=== PATIENT | male | born 1945 | race Caucasian/White ===

== ENCOUNTER 2017-11-09 22:21 | Emergency (ER) | payer MEDICARE ==
[~2017-11-09] VITALS: Ht 182.9 cm; Wt 99.0 kg
[~2017-11-09 22:21] MED LIST: KEFLEX500 M1 PO; UNABLE TO RECONCILE
[2017-11-09] MEDS ORDERED: OMEPRAZOLE10 MG PO (22:35)
[2017-11-09] MEDS ORDERED: LEVOTHYROXIN25 MC1 PO (22:35)
[2017-11-09] MEDS ORDERED: ALLOPURINOL100 MG PO (22:35)
[2017-11-09] MEDS ORDERED: SIMVASTATIN40 MG PO (22:36)
[2017-11-09 23:20] LABS: HEMATOCRIT 45.6 % (39.0-50.0); HEMOGLOBIN 15.6 g/dl (14.0-18.0); IMMATURE GRANULOCYTES 0.8 % (0.0-1.0); MEAN CELL VOLUME 88.9 fL CALC (80.0-100.0); MEAN CORPUSCULAR HGB 30.4 pG CALC (26.0-32.0); MEAN CORPUSCULAR HGB CONC 34.2 g/L CALC (32.0-36.0); NEUT# 3.94 thou/uL (1.82-7.42); RED BLOOD COUNT 5.13 mill/uL (4.70-6.10); RED CELL DISTRI WIDTH 12.6 % (11.5-15.5)
[2017-11-09 23:30] LABS: ALBUMIN 3.9 g/dL (3.2-5.0); BILIRUBIN, TOTAL 0.4 mg/dL (0.0-1.4); POTASSIUM 3.9 mmol/l (3.5-5.1); TOTAL PROTEIN 6.8 g/dL (6.3-8.2)
[2017-11-09 23:32] LABS: CREATININE 1.4 mg/dL (0.7-1.3)
[2017-11-09] MEDS ORDERED: NAPROSYN500 MG PO (23:39)
[2017-11-09] MEDS ORDERED: FLEXERIL PO (23:39)
[2017-11-10 00:31] VITALS: BP 136/70
== END 2017-11-10 00:30 | disposition home or self-care (01) | DRG 93 ==
LOC: ED 22:21
PROVIDERS: Emergency Medicine
DX: R25.2 Cramp and spasm (principal)

== ENCOUNTER 2018-07-18 13:15 | Emergency (ER) | payer OTHER, MEDICARE ==
[~2018-07-18] VITALS: Ht 182.9 cm; Wt 100.0 kg
[~2018-07-18 13:15] MED LIST changes: +ALLOPURINOL100 MG PO; +FLEXERIL PO; +LEVOTHYROXIN25 MC1 PO; +NAPROSYN500 MG PO; +OMEPRAZOLE10 MG PO; +SIMVASTATIN40 MG PO
[2018-07-18] MEDS ORDERED: TORADOL PO (14:42)
[2018-07-18] MEDS ORDERED: FLEXERIL PO (14:42)
[2018-07-18 15:08] VITALS: BP 182/89
== END 2018-07-18 15:08 | disposition home or self-care (01) | DRG 552 ==
LOC: ED 13:15
DX: S16.1XXA Strain of muscle, fascia and tendon at neck level, initial encounter (principal); V59.40XA Driver of pick-up truck or van injured in collision with unspecified motor vehicles in traffic accident, initial encounter

== ENCOUNTER 2019-12-29 12:35 | Emergency (ER) | payer OTHER, MEDICARE ==
[~2019-12-29] VITALS: Ht 182.9 cm; Wt 100.0 kg
[~2019-12-29 12:35] MED LIST changes: +TORADOL PO
[2019-12-29 12:57] LABS: HEMATOCRIT 46.5 % (39.0-50.0); HEMOGLOBIN 15.5 g/dl (14.0-18.0); IMMATURE GRANULOCYTES 0.6 % (0.0-5.0); MEAN CELL VOLUME 89.6 fL CALC (80.0-100.0); MEAN CORPUSCULAR HGB 29.9 pG CALC (26.0-32.0); MEAN CORPUSCULAR HGB CONC 33.3 g/dL CAL (32.0-36.0); NEUT# 6.01 thou/uL (1.82-7.42); RED BLOOD COUNT 5.19 mill/uL (4.70-6.10); RED CELL DISTRI WIDTH 12.9 % (11.5-15.5)
[2019-12-29 13:09] LABS: ALBUMIN 4.3 g/dL (3.2-5.0); ALKALINE PHOSPHATASE 72 u/l (38-126); BUN 19 mg/dL (8-23); BUN/CREATININE RATIO 16 (12-20 (CALC)); CARBON DIOXIDE 24 mmol/l (22-30); CHLORIDE 105 mmol/l (95-108); CREATININE 1.2 mg/dL (0.7-1.3); GFR 59 ML/MIN (>=60 (CALC)); GFR FOR AFR.AMER. > 60 ML/MIN (>=60 (CALC)); SGOT/AST 34 u/l (19-48); SODIUM 136 mmol/l (137-146); TOTAL PROTEIN 7.3 g/dL (6.3-8.2)
[2019-12-29 13:13] LABS: ANION GAP 12 (6-22 (CALC)); BILIRUBIN, TOTAL 0.6 mg/dL (0.0-1.4); POTASSIUM 4.7 mmol/l (3.5-5.1)
[2019-12-29 14:26] VITALS: BP 147/80
== END 2019-12-29 14:26 | disposition home or self-care (01) | DRG 310 ==
LOC: ED 12:35
PROVIDERS: Family Medicine
DX: R00.2 Palpitations (principal)

== ENCOUNTER 2021-01-16 17:56 | Emergency (ER) | payer OTHER, MEDICARE ==
[~2021-01-16] VITALS: Ht 182.9 cm; Wt 95.0 kg
[2021-01-16] MEDS ORDERED: CORTISPORIN OTI10 M2 AS (18:23)
[2021-01-16 18:41] VITALS: BP 128/68
== END 2021-01-16 18:41 | disposition home or self-care (01) | DRG 156 ==
LOC: ED 17:56
DX: H60.92 Unspecified otitis externa, left ear (principal); I10 Essential (primary) hypertension; E03.9 Hypothyroidism, unspecified; M10.9 Gout, unspecified; E78.00 Pure hypercholesterolemia, unspecified

== ENCOUNTER 2021-11-30 09:25 | Emergency (ER) | payer OTHER, MEDICARE ==
[~2021-11-30] VITALS: Ht 182.9 cm; Wt 98.0 kg
[~2021-11-30 09:25] MED LIST changes: +CORTISPORIN OTI10 M2 AS
[2021-11-30 10:24] VITALS: BP 151/106
[2021-11-30] MEDS ORDERED: ALLOPURINOL300 MG PO (10:28)
[2021-11-30] MEDS ORDERED: OMEPRAZOLE10 MG PO (10:29)
[2021-11-30] MEDS ORDERED: BP MED (10:29)
[2021-11-30] MEDS ORDERED: LISINOPRIL2.5 MG PO (10:29)
[2021-11-30] MEDS ORDERED: LISINOP/HCTZ1 TA1 PO (10:52)
[2021-11-30] MEDS ORDERED: SILDENAFIL CIT100 MG (10:53)
[2021-11-30] MEDS ORDERED: LEVOTHYROXIN100 MC1 PO (10:54)
[2021-11-30] MEDS ORDERED: SIMVASTATIN10 MG PO (10:56)
[2021-11-30] MEDS ORDERED: EQL VITAMIN B500 MCG (10:57)
[2021-11-30] MEDS ORDERED: ALLOPURINOL100 MG PO (10:59)
[2021-11-30] MEDS ORDERED: HM VITAMIN D325 MCG (10:59)
== END 2021-11-30 11:40 | disposition home or self-care (01) | DRG 179 ==
LOC: ED 09:25
DX: U07.1 COVID-19 (principal); R52 Pain, unspecified; R05.9 Cough, unspecified; R09.89 Other specified symptoms and signs involving the circulatory and respiratory systems; I10 Essential (primary) hypertension; E03.9 Hypothyroidism, unspecified; M10.9 Gout, unspecified; E78.00 Pure hypercholesterolemia, unspecified

== ENCOUNTER 2022-07-16 06:23 | Emergency (ER) | payer OTHER, MEDICARE ==
[~2022-07-16] VITALS: Ht 182.9 cm; Wt 93.6 kg
[2022-07-16] VITALS (16 sets, daily range): BP systolic 147–176; BP diastolic 76–104
[~2022-07-16 06:23] MED LIST changes: +ALLOPURINOL300 MG PO; +BP MED; +EQL VITAMIN B500 MCG; +HM VITAMIN D325 MCG; +LEVOTHYROXIN100 MC1 PO; +LISINOP/HCTZ1 TA1 PO; +LISINOPRIL2.5 MG PO; +SILDENAFIL CIT100 MG; +SIMVASTATIN10 MG PO
[2022-07-16 07:31] LABS: BASO% 0.6 % (0-3); EOS% 5.6 % (0-8); IMMATURE GRANULOCYTES 0.4 % (0.0-5.0); LYMPH% 14.6 % (15-41); MEAN CELL VOLUME 92.4 fL CALC (80.0-100.0); MEAN CORPUSCULAR HGB CONC 33.5 g/dL CAL (32.0-36.0); MONO% 11.6 % (2-13); NEUT# 3.23 thou/uL (1.82-7.42); NEUT% 67.2 % (42-76); RED BLOOD COUNT 4.2 mill/uL (4.70-6.10); RED CELL DISTRI WIDTH 13.2 % (11.5-15.5)
[2022-07-16 07:33] LABS: HEMATOCRIT 38.8 % (39.0-50.0)
[2022-07-16 08:09] LABS: ALBUMIN 3.9 g/dL (3.2-5.0); ALKALINE PHOSPHATASE 69 u/l (38-126); ANION GAP 10 (6-22 (CALC)); BUN 24 mg/dL (8-23); BUN/CREATININE RATIO 21 (12-20 (CALC)); CARBON DIOXIDE 26 mmol/l (22-30); CHLORIDE 105 mmol/l (95-108); CREATININE 1.1 mg/dL (0.7-1.3); GFR FOR AFR.AMER. > 60 ML/MIN (>=60 (CALC)); GFR OTHER RACES > 60 ML/MIN (>=60 (CALC)); LIPASE 132 u/l (23-300); POTASSIUM 4.3 mmol/l (3.5-5.1); SGOT/AST 26 u/l (19-48); SODIUM 137 mmol/l (137-146); TOTAL PROTEIN 6.7 g/dL (6.3-8.2)
[2022-07-16 11:44] LABS: URINE BILIRUBIN - DIPSTICK NEGATIVE (NEGATIVE); URINE BLOOD DIPSTICK NEGATIVE (NEGATIVE); URINE COLOR YELLOW; URINE GLUCOSE - DIPSTICK NEGATIVE (NEGATIVE); URINE KETONE NEGATIVE (NEGATIVE); URINE LEUK ESTERASE NEGATIVE (NEGATIVE); URINE NITRITE - DIPSTICK NEGATIVE (Negative); URINE PROTEIN - DIPSTICK NEGATIVE (NEG-TRACE); URINE UROBILINOGEN - DIPSTICK 0.2 E.U./dL (0.2)
[2022-07-16] MEDS ORDERED: CELEBREX100 M1 PO (12:59)
[2022-07-16] MEDS ORDERED: PROTONIX40 M4 PO (13:46)
[2022-07-17] MEDS ORDERED: PREVACID30 M3 PO (22:02)
[2022-07-17] MEDS ORDERED: MIRALAX17 GM PO (22:02)
== END 2022-07-16 14:00 | disposition left against medical advice (07) | DRG 392 ==
LOC: ED 06:23
PROVIDERS: Emergency Medicine
DX: R10.33 Periumbilical pain (principal)
CPT/HCPCS: Q9967; S0164

== ENCOUNTER 2022-07-17 20:44 | Emergency (ER) | payer OTHER, MEDICARE ==
[~2022-07-17] VITALS: Ht 182.9 cm; Wt 93.0 kg
[~2022-07-17 20:44] MED LIST changes: +CELEBREX100 M1 PO; +PROTONIX40 M4 PO
[2022-07-17 21:24] VITALS: BP 162/82
[2022-07-17 21:30] VITALS: BP 143/75
[2022-07-17 21:31] LABS: BASO% 0.6 % (0-3); EOS% 3.9 % (0-8); HEMATOCRIT 40.8 % (39.0-50.0); HEMOGLOBIN 13.9 g/dl (14.0-18.0); IMMATURE GRANULOCYTES 0.4 % (0.0-5.0); LYMPH% 9.8 % (15-41); MEAN CELL VOLUME 91.5 fL CALC (80.0-100.0); MEAN CORPUSCULAR HGB 31.2 pG CALC (26.0-32.0); MEAN CORPUSCULAR HGB CONC 34.1 g/dL CAL (32.0-36.0); NEUT# 6.04 thou/uL (1.82-7.42); NEUT% 76.3 % (42-76); RED BLOOD COUNT 4.46 mill/uL (4.70-6.10); RED CELL DISTRI WIDTH 13.1 % (11.5-15.5)
[2022-07-17 21:43] LABS: ALBUMIN 4.3 g/dL (3.2-5.0); ALKALINE PHOSPHATASE 84 u/l (38-126); AMYLASE 76 u/l (30-110); ANION GAP 11 (6-22 (CALC)); BUN 22 mg/dL (8-23); BUN/CREATININE RATIO 19 (12-20 (CALC)); CARBON DIOXIDE 25 mmol/l (22-30); CHLORIDE 107 mmol/l (95-108); CREATININE 1.2 mg/dL (0.7-1.3); GFR FOR AFR.AMER. > 60 ML/MIN (>=60 (CALC)); GFR OTHER RACES 59 ML/MIN (>=60 (CALC)); LIPASE 128 u/l (23-300); POTASSIUM 4.1 mmol/l (3.5-5.1); SGOT/AST 29 u/l (19-48); SODIUM 140 mmol/l (137-146); TOTAL PROTEIN 7.3 g/dL (6.3-8.2)
[2022-07-17 21:46] VITALS: BP 152/81
[2022-07-17 21:50] LABS: BILIRUBIN, TOTAL 0.2 mg/dL (0.0-1.4)
[2022-07-17 22:01] VITALS: BP 149/78
[2022-07-17] MEDS ORDERED: MIRALAX17 GM PO (22:02)
[2022-07-17] MEDS ORDERED: PREVACID30 M3 PO (22:02)
[2022-07-17 22:04] VITALS: BP 149/76
== END 2022-07-17 22:16 | disposition home or self-care (01) | DRG 392 ==
LOC: ED 20:44
PROVIDERS: Emergency Medicine
DX: R10.9 Unspecified abdominal pain (principal); K59.00 Constipation, unspecified

== ENCOUNTER 2023-02-13 09:40 | Emergency (ER) | payer OTHER, MEDICARE ==
[~2023-02-13] VITALS: Ht 182.9 cm; Wt 102.4 kg
[~2023-02-13 09:40] MED LIST changes: +MIRALAX17 GM PO; +PREVACID30 M3 PO
[2023-02-13 09:47] VITALS: BP 152/88
[2023-02-13 10:00] VITALS: BP 131/88
[2023-02-13 10:10] LABS: BASO% 0.4 % (0-3); EOS% 3.6 % (0-8); HEMATOCRIT 45.3 % (39.0-50.0); IMMATURE GRANULOCYTES 0.4 % (0.0-5.0); LYMPH% 11.3 % (15-41); MEAN CORPUSCULAR HGB 30.8 pG CALC (26.0-32.0); MEAN CORPUSCULAR HGB CONC 33.1 g/dL CAL (32.0-36.0); MONO% 11.2 % (2-13); NEUT# 5.68 thou/uL (1.82-7.42); NEUT% 73.1 % (42-76); RED BLOOD COUNT 4.87 mill/uL (4.70-6.10); RED CELL DISTRI WIDTH 13.3 % (11.5-15.5)
[2023-02-13 10:29] LABS: ALBUMIN 4.1 g/dL (3.2-5.0); ALKALINE PHOSPHATASE 94 u/l (38-126); ANION GAP 14 (6-22 (CALC)); BUN 23 mg/dL (8-23); BUN/CREATININE RATIO 19 (12-20 (CALC)); CARBON DIOXIDE 22 mmol/l (22-30); CHLORIDE 104 mmol/l (95-108); CREATININE 1.2 mg/dL (0.7-1.3); GFR FOR AFR.AMER. > 60 ML/MIN (>=60 (CALC)); GFR OTHER RACES 59 ML/MIN (>=60 (CALC)); POTASSIUM 4.3 mmol/l (3.5-5.1); SGOT/AST 31 u/l (19-48); SODIUM 136 mmol/l (137-146); TOTAL PROTEIN 7.2 g/dL (6.3-8.2)
[2023-02-13 10:30] LABS: BILIRUBIN, TOTAL 0.4 mg/dL (0.2-1.3)
[2023-02-13 10:31] VITALS: BP 128/65
[2023-02-13] MEDS ORDERED: PAXLOVID 10 X 11 TAB PO (10:59)
[2023-02-13] MEDS ORDERED: MEDROL DOSEPAK4 MG PO (10:59)
[2023-02-13 11:01] VITALS: BP 131/80
== END 2023-02-13 11:11 | disposition home or self-care (01) | DRG 179 ==
LOC: ED 09:40
PROVIDERS: Family Medicine
DX: U07.1 COVID-19 (principal); R09.81 Nasal congestion; I10 Essential (primary) hypertension; E03.9 Hypothyroidism, unspecified; E78.00 Pure hypercholesterolemia, unspecified

== ENCOUNTER 2023-03-01 17:36 | Observation (INO) | payer OTHER, MEDICARE ==
[2023-03-01] VITALS (8 sets, daily range): BP systolic 112–145; BP diastolic 63–81
[~2023-03-01] VITALS: Ht 182.9 cm; Wt 98.4 kg
[~2023-03-01 17:36] MED LIST changes: +MEDROL DOSEPAK4 MG PO; +PAXLOVID 10 X 11 TAB PO
--- NOTE | 2023-03-01 17:53 | NUR ---
AMB TO ROOM 13 WITH STEADY GAIT.
--- NOTE | 2023-03-01 18:00 | NUR ---
RECTAL EXAM DONE, HEM POSITIVE, PT TOLERATED WELL.
[2023-03-01 18:25] LABS: BASO% 0.4 % (0-3); EOS% 2.6 % (0-8); HEMATOCRIT 42.5 % (39.0-50.0); HEMOGLOBIN 14.2 g/dl (14.0-18.0); IMMATURE GRANULOCYTES 0.5 % (0.0-5.0); LYMPH% 8.9 % (15-41); MEAN CELL VOLUME 91.6 fL CALC (80.0-100.0); MEAN CORPUSCULAR HGB 30.6 pG CALC (26.0-32.0); MEAN CORPUSCULAR HGB CONC 33.4 g/dL CAL (32.0-36.0); MONO% 11.2 % (2-13); NEUT# 6.26 thou/uL (1.82-7.42); NEUT% 76.4 % (42-76); RED BLOOD COUNT 4.64 mill/uL (4.70-6.10)
[2023-03-01 19:08] LABS: INTERNATIONAL NORMALIZED RATIO 1.1 RATIO (0.7-1.3); PROTHROMBIN TIME 10.3 SECONDS (9.0-12.5)
[2023-03-01 19:18] LABS: BILIRUBIN, TOTAL 0.5 mg/dL (0.2-1.3); CREATININE 1.9 mg/dL (0.7-1.3); POTASSIUM 5.5 mmol/l (3.5-5.1); TOTAL PROTEIN 6.9 g/dL (6.3-8.2)
--- NOTE | 2023-03-01 20:28 | NUR ---
PT IS STILL WAITING ON RADIOLOGY REPORTS. PT RESTING AND ON HIS PHONE AT THIS TIME. CALL HERNANDEZ WITHIN REACH
--- NOTE | 2023-03-01 21:22 | NUR ---
PT WILL BE ADMITTED FOR OBSERVATION. PT WILL BE STAYING IN THE ER DUE TO NOT HAVING ROOMS AVAILABLE UP STAIRS.
[2023-03-02] VITALS (29 sets, daily range): BP systolic 107–143; BP diastolic 53–83
[2023-03-02 00:48] LABS: HEMATOCRIT 41.6 % (39.0-50.0); HEMOGLOBIN 13.9 g/dl (14.0-18.0)
--- NOTE | 2023-03-02 01:10 | NUR ---
PT SLEEPING AT THIS TIME. CALL HERNANDEZ WITHIN REACH.
--- NOTE | 2023-03-02 01:19 | NUR ---
PT RESTING IN HOSPITAL BED PLACED IN ROOM IN ER FOR COMFORT, ADMISSION ASSESSMENT COMPLETED AND PATIENT MEDICATED ORDERED. PT STATES HE STARTED HAVING RECTAL BLEED ABOUT A WEEK AGAO AND IT CONSIDERABLY WORSE TODY, PT ALSO COMPLAINS OF RECTAL PAIN 7/10 ON PAIN SCALE BUT DENIES NEED FOR PAIN MEDS AT THIS TIME, SKIN IS WARM DRY AND INTACT WITH NO BREAKDOWN NOTED. PT STATES THAT HE LIVES ALONE IS ABLE TO DRIVE AND CARE FOR HIMSELF WELL HIS HOME. STATES HE HAS A GIRLFRIEND FOSTER STAYS OVER ONCE AND A WHILE. DENIES HAVING ANY OTHER COMPLAINTS.ORIENTED TO ROOM AND UNIT, SAFETY MEASURES INTRODUCED AND REINFORED AND PT VERBLAIZES UNDERSTANDING, WILL CONTINUE TO MONITOR.
--- NOTE | 2023-03-02 03:10 | NUR ---
PT STILL SLEEPING CALL LIGHT WITHIN REACH
--- NOTE | 2023-03-02 03:14 | NUR ---
pt resting with eyes closed, no s/s of distress or discomfort, call hutson within reach, no s/s of rectal bleedning noted, most recent hemoglobin only minimally lower than previous. Next HGB due at 0600am, will continue to monitor.
--- NOTE | 2023-03-02 05:09 | NUR ---
PT AMBULATED TO THE BATHROOM. PT BACK IN BED AND HOOKED UP TO MONITOR. CALL LIGHT WITHIN REACH
[2023-03-02 06:21] LABS: HEMATOCRIT 39.8 % (39.0-50.0); HEMOGLOBIN 13.2 g/dl (14.0-18.0)
--- NOTE | 2023-03-02 06:50 | NUR ---
MO GAVE BEDSIDE REPORT TO LORIN MED SURG NURSE
--- NOTE | 2023-03-02 07:00 | NUR ---
REPORT RECEIVED FROM CONNIE,RN
--- NOTE | 2023-03-02 08:40 | NUR ---
PT RESTING IN SEMI FOWLERS POSITION,A&O X3;VS OBTAINED AND ASSESSMENT COMPLETED;PT DENIES ANY CURRENT PAIN OR DISCOMFORTS,PAIN SCALE AND REPORTING EDUCATED;RESPIRATIONS EVEN AND UNLABORED ON RA,CLEAR LUNG SOUNDS;ABDOMEN SOFT ON PALPATION AND ACTIVE IN ALL 4 QUADRANTS;STRONG PEDAL PULSES;SKIN INTACT;#20G TO LAC INFUSING NS @100ML/HR,SITE APPEARS HEALTHY;MEAL TRAY PROVIDED;ALLERGY BAND APPLIED TO PT LEFT ARM;PT DENIES ANY ADDITIONAL NEEDS AND IS ENCOURAGED TO CALL FOR ASSISTANCE IF NEEDED;FALL PRECAUTIONS IN PLACE WITH CALL LIGHT IN REACH;FREQUENT ROUNDS MADE.
--- NOTE | 2023-03-02 10:24 | NUR ---
REPORT CALLED TO MIGUEL PEREZ
--- NOTE | 2023-03-02 10:50 | NUR ---
PT TRANSPORTED TO MED SURG ROOM 279 IN STABLE CONDITION VIA HOSPITAL BED ACCOMPANIED BY WRITTER. PT TOLERATED TRANSPORT WELL. CARE RELINQUISHED TO MIGUEL PEREZ
--- NOTE | 2023-03-02 10:56 | NUR ---
PT REPORT PROVIDED FROM LORIN RIVERA. PT ARRIVED TO [facility] VIA BED WITH NURSE. PT RESTING IN LOWFOWLERS POSITION. A/OX3 INDEPENDENT. IV SITE NOTED. INFUSING WITH NS.NO TELE. PT NOW ON 2L PER RT . PTDENIES ADDITIONAL NEEDS AT THE TIME ATTEMPTING TO FIX CALL LIGHT TO TV . CALL LIGHT WORKS. ALLSAFETY PRECAUTIONS IN PLACE.
[2023-03-02 11:05] LABS: HEMATOCRIT 41.3 % (39.0-50.0); HEMOGLOBIN 13.7 g/dl (14.0-18.0); MEAN CORPUSCULAR HGB 30.5 pG CALC (26.0-32.0); MEAN CORPUSCULAR HGB CONC 33.2 g/dL CAL (32.0-36.0); RED BLOOD COUNT 4.49 mill/uL (4.70-6.10)
--- NOTE | 2023-03-02 11:20 | NUR ---
LORIN GAVE BEDSIDE REPORT TO ALLY, PATIENT TRANSFERRED TO R 279 ON MED SURG. BELONGINGS WITH PATIENT
[2023-03-02 11:22] LABS: CREATININE 1.5 mg/dL (0.7-1.3); POTASSIUM 4.9 mmol/l (3.5-5.1)
[2023-03-02 12:07] LABS: HEMATOCRIT 42.1 % (39.0-50.0); HEMOGLOBIN 13.9 g/dl (14.0-18.0)
--- NOTE | 2023-03-02 12:38 | NUR ---
PT DENIES ADDITIONAL NEEDS AT THE TIME OTHER THAN TV ADGUSTMENT.
--- NOTE | 2023-03-02 16:06 | NUR ---
PT RESTING IN LOW FOWLERS POSITION DENIES ADDITIONAL NEEDS AT THE TIME. ALL SAFETY PRECAUTIONS IN PLACE.
[2023-03-02 18:13] LABS: HEMATOCRIT 43.2 % (39.0-50.0); HEMOGLOBIN 14.3 g/dl (14.0-18.0)
[2023-03-03 04:40] VITALS: BP 141/67
[2023-03-03 05:59] LABS: HEMATOCRIT 42.1 % (39.0-50.0); MEAN CELL VOLUME 92.1 fL CALC (80.0-100.0); MEAN CORPUSCULAR HGB 30.6 pG CALC (26.0-32.0); MEAN CORPUSCULAR HGB CONC 33.3 g/dL CAL (32.0-36.0); RED BLOOD COUNT 4.57 mill/uL (4.70-6.10); RED CELL DISTRI WIDTH 12.9 % (11.5-15.5)
[2023-03-03 06:10] LABS: ALBUMIN 3.7 g/dL (3.2-5.0); BILIRUBIN, TOTAL 0.7 mg/dL (0.2-1.3); CREATININE 1.4 mg/dL (0.7-1.3); POTASSIUM 4.5 mmol/l (3.5-5.1); TOTAL PROTEIN 6.6 g/dL (6.3-8.2)
[2023-03-03 06:43] VITALS: BP 119/66
--- NOTE | 2023-03-03 08:00 | NUR ---
PT RESTING IN HIGH FOWLERS POSITION. A/OX3 ASSESSMENT COMPLETED. PT HEART RHYHTM NORM. RESPIRATIONS 2LNC PRN. PT SPOKE WITH MD ESTRADA THIS MORNING FOR POSSIBLE OUT PT TREATMENT. PT STATED WHEN WILL BE DC. EDUCATED PT MD TAVERAS NEEDED TO SEE PT BEFORE DC. PT STATED UNDERSTANDING.
[2023-03-03 08:46] VITALS: BP 125/61
--- NOTE | 2023-03-03 12:32 | NUR ---
PT RESTING IN HIGH FOWLERS POSITION. NO ADDITIONAL NEEDS REQUESTED ALL SAFETY PRECAUTIONS IN PLACE WITH CALL LIGHT IN REACH.
[2023-03-03] MEDS ORDERED: PROCTOFOAM HC10 GM RE ×2 (15:30→15:32)
[2023-03-03 15:44] VITALS: BP 104/56
--- NOTE | 2023-03-03 16:48 | NUR ---
Discharge instructions given. Patient verbalizes understanding of same. Discharged in stable condition via Wheelchair to Home with staff. All belongings sent with pt. IV REMOVED. NO TELE
== END 2023-03-03 16:48 | disposition home or self-care (01) | DRG 378 ==
LOC: ED 17:36 → ED-I 20:50 → ED 21:14 → ED-I 21:15 → MS2 21:15
PROVIDERS: Family Medicine; Student in an Organized Health Care Education/Training Program; ADMIT Internal Medicine; ATTEND Internal Medicine
DX: K62.5 Hemorrhage of anus and rectum (principal); N17.9 Acute kidney failure, unspecified; D64.9 Anemia, unspecified; E87.6 Hypokalemia; K57.30 Diverticulosis of large intestine without perforation or abscess without bleeding; E03.9 Hypothyroidism, unspecified; I10 Essential (primary) hypertension; M10.9 Gout, unspecified; E78.5 Hyperlipidemia, unspecified; K59.00 Constipation, unspecified

== ENCOUNTER 2024-07-01 14:04 | Emergency (ER) | payer OTHER, MEDICARE ==
[2024-07-01] VITALS (18 sets, daily range): BP systolic 87–157; BP diastolic 57–86
[~2024-07-01] VITALS: Ht 182.9 cm; Wt 102.0 kg
[~2024-07-01 14:04] MED LIST changes: +OMEPRAZOLE DR40 MG; +PROCTOFOAM HC10 GM RE
[2024-07-01] MEDS ORDERED: ASPIRIN 81 MG/TAB PO ONE (14:15)
[2024-07-01] MEDS ORDERED: NITROGLYCERIN 0.4 MG/TAB SL ONE (14:20)
[2024-07-01 14:27] LABS: BASO% 0.3 % (0-3); EOS% 3.6 % (0-8); HEMATOCRIT 43.3 % (39.0-50.0); HEMOGLOBIN 14.5 g/dl (14.0-18.0); IMMATURE GRANULOCYTES 0.4 % (0.0-5.0); LYMPH% 7.4 % (15-41); MEAN CELL VOLUME 92.7 fL CALC (80.0-100.0); MEAN CORPUSCULAR HGB CONC 33.5 g/dL CAL (32.0-36.0); MONO% 9.4 % (2-13); NEUT# 7.84 thou/uL (1.82-7.42); NEUT% 78.9 % (42-76); RED BLOOD COUNT 4.67 mill/uL (4.70-6.10)
[2024-07-01] MEDS ORDERED: SODIUM CHLORIDE 0.9% 1,000 ML IV ONE (15:25)
[2024-07-01] MEDS ORDERED: SODIUM CHLORIDE 0.9% 500 ML IV ONE (15:30)
[2024-07-01 15:48] LABS: ALKALINE PHOSPHATASE 67 u/l (38-126); ANION GAP 12 (6-22 (CALC)); BILIRUBIN, TOTAL 0.4 mg/dL (0.2-1.3); BUN 28 mg/dL (8-23); BUN/CREATININE RATIO 20 (12-20 (CALC)); CARBON DIOXIDE 23 mmol/l (22-30); CHLORIDE 105 mmol/l (95-108); CREATININE 1.4 mg/dL (0.7-1.3); ESTIMATED GFR 51 ML/MIN (>=90 (CALC)); POTASSIUM 4.1 mmol/l (3.5-5.1); SGOT/AST 32 u/l (19-48); SODIUM 136 mmol/l (137-146); TOTAL PROTEIN 6.7 g/dL (6.3-8.2)
[2024-07-01] MEDS ORDERED: ASPIRIN 81 LOW81 MG (16:31)
== END 2024-07-01 18:56 | disposition left against medical advice (07) | DRG 313 ==
LOC: ED 14:04 → ED-I 14:47 → ED 18:56
PROVIDERS: Family Medicine
DX: R07.9 Chest pain, unspecified (principal); I10 Essential (primary) hypertension